=== PATIENT | female | born 1960 | race Caucasian/White ===

== ENCOUNTER 2020-09-15 15:17 | Emergency (ER) | payer OTHER, BC ==
[~2020-09-15] VITALS: Ht 172.7 cm; Wt 86.4 kg
[2020-09-15] MEDS ORDERED: acetaminophen 325mg tablet PO ONE (16:15)
[2020-09-15 17:20] VITALS: BP 109/63
== END 2020-09-15 17:22 | disposition home or self-care (01) ==
LOC: ER 15:17
DX: J02.9 Acute pharyngitis, unspecified (principal); R50.9 Fever, unspecified; Z20.828 Contact with and (suspected) exposure to other viral communicable diseases; G89.29 Other chronic pain; Z98.890 Other specified postprocedural states; Z88.1 Allergy status to other antibiotic agents; Z88.6 Allergy status to analgesic agent; Z88.5 Allergy status to narcotic agent
CPT/HCPCS: 36415; 87081; 87635; 87880; 99283